=== PATIENT | male | born 1995 | race Caucasian/White ===

== ENCOUNTER 2017-10-09 10:17 | Emergency (ER) | payer BC ==
[2017-10-09 10:39] VITALS: BP 131/71
--- NOTE | 2017-10-09 10:51 | UC ---
Ear Complaint HPI - HPI Summary HPI Summary: Right ear pain for about 1 day. He has had some throat scratchiness as well. NO fever. No significant cough. - History of Current Complaint Chief Complaint: UCEar Stated Complaint: RIGHT EAR COMPLAINT Time Seen by Provider: 10/09/17 10:31 Hx Obtained From: Patient Onset/Duration: Gradual Onset, Lasting Days Severity Initially: Mild Severity Currently: Moderate Pain Intensity: 8 Alleviating Factors: Nothing Associated Signs/Symptoms: Positive: URI Symptoms. Negative: Discharge, Hearing Loss, Foreign Body Sensation, Trauma to Ear - Allergies/Home Medications Allergies/Adverse Reactions: Allergies Allergy/AdvReac Type Severity Reaction Status Date / Time environmental allergies Allergy Eyes Uncoded 10/09/17 10:30 Itchy/Swollen/Red/Watery Home Medications: Home Medications Esomeprazole(NF) [NEXium(NF)] 20 mg PO DAILY 10/09/17 [History Confirmed ] PMH/Surg Hx/FS Hx/Imm Hx Previously Healthy: No - ear tubes, T&A. - Surgical History Surgical History: Yes Surgery Procedure, Year, and Place: germaine fundopication. adenoids, ear tubes x2, nasal. TONSILLECTOMY 10/07 - Family History Known Family History: Positive: Other - NO related ear disease. - Social History Occupation: Student Lives: With Family Alcohol Use: None Substance Use Type: None Smoking Status (MU): Never Smoked Tobacco - Immunization History Vaccination Up to Date: Yes Review of Systems ENT: Ear Ache All Other Systems Reviewed And Are Negative: Yes Physical Exam Triage Information Reviewed: Yes Appearance: Well-Appearing, No Pain Distress, Well-Nourished Vital Signs: Initial Vital Signs Temp 99.1 F 10/09/17 10:32 Pulse 89 10/09/17 10:32 Resp 20 10/09/17 10:32 BP 131/71 10/09/17 10:32 Pulse Ox 99 10/09/17 10:32 Vital Signs Reviewed: Yes Eyes: Positive: Conjunctiva Clear ENT: Positive: TM red, Uvula midline, Other - right tragal and canal tenderness.. Negative: Nasal congestion, TM bulging, TM dull, Tonsillar swelling, Tonsillar exudate, Trismus, Sinus tenderness Neck: Positive: Supple, Nontender, No Lymphadenopathy Respiratory: Positive: Normal breath sounds, No respiratory distress, No accessory muscle use, Respiratory distress. Negative: Decreased breath sounds, Accessory muscle use, Crackles, Rhonchi, Stridor Cardiovascular: Positive: No Murmur, Pulses Normal, Brisk Capillary Refill Abdomen Description: Positive: No Organomegaly, Soft. Negative: Distended, Guarding Musculoskeletal: Positive: Strength Intact, ROM Intact, No Edema Neurological: Positive: Alert, Muscle Tone Normal. Negative: Fatigued Psychological: Positive: Age Appropriate Behavior Skin: Negative: rashes Ear Complaint Course/Dx - Differential Dx/Diagnosis Provider Diagnoses: right otitis externa. uri Discharge - Sign-Out/Discharge Documenting (check all that apply): Patient Departure - Discharge Plan Condition: Good Disposition: HOME Prescriptions: Ciproflox/Dexameth OTIC.SUSP* [Ciprodex OTIC.SUSP*] 4 drop .SEE ORDER TID #1 btl Patient Education Materials: Otitis Externa (ED) Referrals: Tao Orona MD [Primary Care Provider] - - Billing Disposition and Condition Condition: GOOD Disposition: Home
== END 2017-10-09 10:50 | disposition home or self-care (01) ==
LOC: UCCORT 10:17
DX: H60.91 Unspecified otitis externa, right ear (principal); J06.9 Acute upper respiratory infection, unspecified
CPT/HCPCS: 99212; G0463